=== PATIENT | female | born 1975 | race Caucasian/White ===

== ENCOUNTER 2021-03-18 15:32 | Emergency (ER) | payer OTHER ==
[~2021-03-18 15:32] MED LIST: BENTYL10 MG PO; FLEXERIL5 MG PO; FOLIC ACID1 MG PO; K-DUR20 MEQ PO; MELATONIN10 M2 PO; NEURONTIN300 MG PO; NORCO 5-325 TA1 EACH PO; PERCOCET 5-3251 EACH PO; TOPROL XL 25MG25 MG PO
[2021-03-18 17:47] LABS: BASOPHIL 0.1 % (0-2); EOSINOPHIL 0.2 % (0-5); HCT 40.2 % (37.0-47.0); HGB 13.4 g/dl (12.5-16.0); LYMPHOCYTE 26.2 % (15-48); MCH 32.1 pg (25.0-31.0); MCHC 33.3 g/dL (32.0-36.0); MCV 96.2 fL (78.0-100.0); MONOCYTE 5.7 % (0-12); MPV 9.4 fL (6.0-9.5); NEUTROPHIL 67.2 % (41-80); NRBC 0; PLT 286 K/uL (150-400); RBC 4.18 M/uL (4.20-5.40); RDW 12.2 % (11.5-14.0); WBC 8.8 K/uL (4.0-10.5)
[2021-03-18 17:48] LABS: BILIRUBIN NEGATIVE (NEGATIVE); BLOOD NEGATIVE Ery/uL (NEGATIVE); CLARITY CLEAR (CLEAR); COLOR YELLOW (YELLOW); GLUCOSE (U) NORMAL (NORMAL); LEUKOCYTES NEGATIVE Leu/uL (NEGATIVE); NITRITE NEGATIVE (NEGATIVE); PROTEIN NEGATIVE (NEGATIVE); SPECIFIC GRAVITY 1.015 (1.001-1.030); UROBILINOGEN 0.2 mg/dL (0.2-1.0); pH 6.5 (5.0-9.0)
[2021-03-18 17:55] LABS: BACTERIA TRACE
[2021-03-18 18:07] LABS: ALBUMIN 4.1 g/dL (3.4-5.0); BILIRUBIN - TOTAL 0.5 mg/dL (0.2-1.0); BUN/CREAT RATIO (CALC) 16.2 RATIO; CREATININE 0.8 mg/dL (0.51-0.95); GLOBULIN (CALCULATION) 3.5 g/dL; POTASSIUM 3.9 mmol/L (3.5-5.1); TOTAL PROTEIN 7.6 g/dL (6.4-8.2)
[2021-03-18] MEDS ORDERED: ONDANSETRON ODT4 MG PO (19:02)
[2021-03-18] MEDS ORDERED: OMEPRAZOLE 20MG20 MG PO (19:02)
== END 2021-03-18 20:16 | disposition home or self-care (01) ==
LOC: FER 15:32
PROVIDERS: Physician Assistant
DX: R10.84 Generalized abdominal pain (principal); R11.0 Nausea; R19.7 Diarrhea, unspecified; R63.0 Anorexia; I10 Essential (primary) hypertension; Z87.19 Personal history of other diseases of the digestive system; Z86.79 Personal history of other diseases of the circulatory system; Z90.710 Acquired absence of both cervix and uterus; Z98.890 Other specified postprocedural states; Z98.51 Tubal ligation status; Z90.49 Acquired absence of other specified parts of digestive tract; Z90.721 Acquired absence of ovaries, unilateral; Z88.6 Allergy status to analgesic agent; Z88.8 Allergy status to other drugs, medicaments and biological substances; Z88.1 Allergy status to other antibiotic agents
CPT/HCPCS: 36415; 80053; 81001; 83690; 85025; C9113; J1170; J2405; J7030; Q9967

== ENCOUNTER 2021-05-21 17:10 | Emergency (ER) | payer OTHER ==
[~2021-05-21 17:10] MED LIST changes: +OMEPRAZOLE 20MG20 MG PO; +ONDANSETRON ODT4 MG PO
[2021-05-21 20:57] LABS: BASOPHIL 0.4 % (0-2); EOSINOPHIL 1.5 % (0-5); HCT 44.2 % (37.0-47.0); HGB 14.4 g/dl (12.5-16.0); LYMPHOCYTE 25.7 % (15-48); MCH 31.1 pg (25.0-31.0); MCHC 32.6 g/dL (32.0-36.0); MCV 95.5 fL (78.0-100.0); MPV 9.5 fL (6.0-9.5); NEUTROPHIL 66.7 % (41-80); NRBC 0; PLT 332 K/uL (150-400); RBC 4.63 M/uL (4.20-5.40); RDW 11.9 % (11.5-14.0); WBC 9.6 K/uL (4.0-10.5)
[2021-05-21 21:06] LABS: BILIRUBIN NEGATIVE (NEGATIVE); BLOOD NEGATIVE Ery/uL (NEGATIVE); CLARITY CLEAR (CLEAR); COLOR YELLOW (YELLOW); GLUCOSE (U) NORMAL (NORMAL); LEUKOCYTES NEGATIVE Leu/uL (NEGATIVE); NITRITE NEGATIVE (NEGATIVE); PROTEIN NEGATIVE (NEGATIVE); UROBILINOGEN 0.2 mg/dL (0.2-1.0)
[2021-05-21 21:08] LABS: ALBUMIN 4.3 g/dL (3.4-5.0); BILIRUBIN - TOTAL 0.4 mg/dL (0.2-1.0); BUN/CREAT RATIO (CALC) 12.7 RATIO; CREATININE 0.79 mg/dL (0.51-0.95); GLOBULIN (CALCULATION) 3.9 g/dL; POTASSIUM 3.6 mmol/L (3.5-5.1); TOTAL PROTEIN 8.2 g/dL (6.4-8.2)
[2021-05-21 21:12] LABS: MARIJUANA (THC) NEGATIVE (NEGATIVE)
[2021-05-21 21:13] LABS: AMPHETAMINES NEGATIVE (NEGATIVE); BARBITURATES NEGATIVE (NEGATIVE); ECSTASY (MDMA) NEGATIVE (NEGATIVE); METHADONE NEGATIVE (NEGATIVE); OPIATES NEGATIVE (NEGATIVE); OXYCODONE POSITIVE (NEGATIVE)
[2021-05-21] MEDS ORDERED: BENTYL10 MG PO (23:11)
== END 2021-05-21 23:25 | disposition home or self-care (01) ==
LOC: FER 17:10
PROVIDERS: Nurse Practitioner Family
DX: R10.84 Generalized abdominal pain (principal); R11.2 Nausea with vomiting, unspecified; Z88.6 Allergy status to analgesic agent; Z88.1 Allergy status to other antibiotic agents
CPT/HCPCS: 36415; 80053; 80305; 81003; 82150; 83690; 85025; J1170; J2405; J7030; Q9967

== ENCOUNTER 2021-07-04 12:41 | Emergency (ER) | payer OTHER ==
[~2021-07-04] VITALS: Ht 175.3 cm; Wt 120.2 kg
[2021-07-04 16:07] LABS: BASOPHIL 0.3 % (0-2); EOSINOPHIL 0.2 % (0-5); HCT 41.3 % (37.0-47.0); HGB 13.5 g/dl (12.5-16.0); LYMPHOCYTE 19.6 % (15-48); MCH 31.5 pg (25.0-31.0); MCHC 32.7 g/dL (32.0-36.0); MCV 96.3 fL (78.0-100.0); MONOCYTE 3.9 % (0-12); MPV 9.8 fL (6.0-9.5); NEUTROPHIL 75.5 % (41-80); NRBC 0; PLT 267 K/uL (150-400); RBC 4.29 M/uL (4.20-5.40); RDW 12.3 % (11.5-14.0); WBC 8.6 K/uL (4.0-10.5)
[2021-07-04 16:15] LABS: INR 1.02 (0.9-1.2); PROTHROMBIN TIME 12.8 SECONDS (11.8-13.4); PTT 26.9 SECONDS (24.4-34.7)
[2021-07-04 16:16] LABS: D-DIMER 0.51 ug/mLFEU (0.00-0.41)
[2021-07-04 16:33] LABS: PRO-BNP 336 pg/mL (<125)
[2021-07-04 16:34] LABS: ALBUMIN 3.6 g/dL (3.4-5.0); BILIRUBIN - TOTAL 0.3 mg/dL (0.2-1.0); BUN/CREAT RATIO (CALC) 19.2 RATIO; C-REACTIVE PROTEIN 1.2 mg/dL (<=0.90); CREATININE 0.73 mg/dL (0.51-0.95); GLOBULIN (CALCULATION) 3.4 g/dL; POTASSIUM 3.8 mmol/L (3.5-5.1)
== END 2021-07-04 22:01 | disposition home or self-care (01) ==
LOC: FER 12:41
PROVIDERS: Emergency Medicine
DX: R07.89 Other chest pain (principal); R11.2 Nausea with vomiting, unspecified; R06.02 Shortness of breath; R53.1 Weakness; R42 Dizziness and giddiness; Z88.6 Allergy status to analgesic agent; Z88.1 Allergy status to other antibiotic agents
CPT/HCPCS: 36415; 71045; 80053; 82728; 83615; 83690; 83880; 84145; 84484; 85025; 85379; 85610; 85730; 86140; 93005; J1170; J2405

== ENCOUNTER 2022-05-27 21:04 | Emergency (ER) | payer OTHER ==
[2022-05-27 21:40] LABS: BASOPHIL 0.3 % (0-2); EOSINOPHIL 0.4 % (0-5); HCT 42.1 % (37.0-47.0); LYMPHOCYTE 25.8 % (15-48); MCH 31.8 pg (25.0-31.0); MCHC 33.3 g/dL (32.0-36.0); MCV 95.7 fL (78.0-100.0); MONOCYTE 4.8 % (0-12); MPV 9.6 fL (6.0-9.5); NEUTROPHIL 68.2 % (41-80); NRBC 0; PLT 250 K/uL (150-400); RDW 11.9 % (11.5-14.0); WBC 12.1 K/uL (4.0-10.5)
[2022-05-27 21:57] LABS: BILIRUBIN NEGATIVE (NEGATIVE); BLOOD NEGATIVE Ery/uL (NEGATIVE); CLARITY CLEAR (CLEAR); COLOR YELLOW (YELLOW); GLUCOSE (U) NORMAL (NORMAL); LEUKOCYTES NEGATIVE Leu/uL (NEGATIVE); NITRITE NEGATIVE (NEGATIVE); PROTEIN NEGATIVE (NEGATIVE); SPECIFIC GRAVITY 1.015 (1.001-1.030); UROBILINOGEN 0.2 mg/dL (0.2-1.0)
[2022-05-27 22:28] LABS: ALBUMIN 4.2 g/dL (3.4-5.0); BILIRUBIN - TOTAL 0.4 mg/dL (0.2-1.0); BUN/CREAT RATIO (CALC) 21.1 RATIO; CREATININE 0.76 mg/dL (0.51-0.95); GLOBULIN (CALCULATION) 3.4 g/dL; POTASSIUM 3.3 mmol/L (3.5-5.1); TOTAL PROTEIN 7.6 g/dL (6.4-8.2)
[2022-05-27 22:29] LABS: CORONAVIRUS 2019 SARS-COV-2 NEGATIVE (NEGATIVE); INFLUENZA A NAA NEGATIVE (NEGATIVE)
[2022-05-27 22:34] LABS: MAGNESIUM 1.9 mg/dL (1.8-2.4)
[2022-05-28] MEDS ORDERED: NORCO 5-325 TA1 EACH PO (02:18)
== END 2022-05-28 02:31 | disposition home or self-care (01) ==
LOC: FER 21:04
PROVIDERS: Physician Assistant
DX: I49.3 Ventricular premature depolarization (principal); R07.89 Other chest pain; E87.6 Hypokalemia; Z88.5 Allergy status to narcotic agent; Z88.6 Allergy status to analgesic agent; Z88.1 Allergy status to other antibiotic agents; Z20.822 Contact with and (suspected) exposure to COVID-19; Z28.310 Unvaccinated for COVID-19
CPT/HCPCS: 36415; 71045; 71275; 80053; 81003; 83690; 83735; 84443; 84484; 85025; 85379; 93005; Q9967; U0002